=== PATIENT | male | born 1935 | race Caucasian/White ===

== ENCOUNTER 2019-12-23 14:53 | Outpatient (CLI) | payer MEDICARE, OTHER, SELFPAY ==
--- NOTE | ~2019-12-23 | US_ITS ---
EXAMINATION: US venous doppler LE RT EXAM DATE: 12/23/2019 15:26 INDICATION: Right leg, right calf pain. TECHNIQUE: Multiple grayscale, color flow and Doppler images of the right lower extremity deep venous system were obtained and reviewed. There is no prior study for comparison. FINDINGS: The right common femoral, femoral and profunda veins demonstrate normal color flow, respira tory variation, augmentation and compressibility. Compressibility, color flow confirmed within the r ight popliteal, posterior tibial, peroneal, and greater saphenous veins. IMPRESSION: 1. No right lower extremity deep venous thrombosis. Reviewed, dictated and finalized at location A. [employer] DEVELOPER
== END 2019-12-23 14:54 | disposition home or self-care (01) ==
PROVIDERS: PCP Nurse Practitioner Adult Health; Visit Provider Nurse Practitioner Adult Health
DX: M79.661 Pain in right lower leg (principal)
CPT/HCPCS: 93971

== ENCOUNTER 2022-11-20 17:22 | Inpatient (IN) | payer MEDICARE, OTHER, SELFPAY ==
[2022-11-20] VITALS (41 sets, daily range): BP systolic 104–143; BP diastolic 60–91; PULSE 58–170; RESP 20–55; TEMP 37.2; O2SAT 90–98
--- NOTE | ~2022-11-20 | XR_ITS ---
EXAMINATION: XR chest 2V DATE: 11/20/2022 18:26 INDICATION: Shortness of breath. Cough. TECHNIQUE: Frontal and lateral views of the chest were obtained. COMPARISON: Chest 2 views 07/30/2018, CT abdomen and pelvis 10/19/16 FINDINGS: There is a mass in anterior segment right upper lobe. There are airspace opacities in left lower lung zone. No pleural effusion or pneumothorax. The heart size is normal. IMPRESSION: 1. Mass in right upper lobe suspicious for primary bronchogenic carcinoma. Chest CT with contrast is recommended. 2. Airspace opacities in left lower lung zone, consistent with atelectasis versus pneumonia. Reviewed, dictated and finalized at location E. IMPRESSION: 1. Mass in right upper lobe suspicious for primary bronchogenic carcinoma. Ches t CT with contrast is recommended. 2. Airspace opacities in left lower lung zone, consistent with atelectasis vers us pneumonia.
--- NOTE | ~2022-11-20 | CT_ITS ---
EXAMINATION: CTA chest PE protocol DATE: 11/20/2022 20:09 INDICATION: Shortness of breath. TECHNIQUE: Computed tomography angiography (CTA) of the chest was performed with 100 mL Omnipaque-350 intravenous contrast timed to evaluate the pulmonary arteries. Coronal maximum intensity projection 3D-reconstructions were created by the technologist. Automated exposure control and iterative reconst ruction technique were employed. The dose-length product was 784.84 mGy-cm. COMPARISON: Chest CT 12/16/2008 FINDINGS: There is mild scarring at the lung apices. There is mild emphysema. There are patchy airspa ce opacities in the lower lobes, right middle lobe, and lingula, consistent with pneumonia. There is a 3.4 x 2.8 cm mass in right lung upper lobe. There is a trace left pleural effusion. The heart size is normal. There are coronary artery calcifications. No pericardial effusion. There is no pulmonary e mbolus. There is mild mediastinal and bilateral hilar lymphadenopathy. There are bridging endplate os teophytes at multiple levels in the spine, consistent with diffuse idiopathic skeletal hyperostosis ( DISH). IMPRESSION: 1. No pulmonary embolus. Sensitivity is moderately decreased by motion artifact. 2. Mass in right lung upper lobe, consistent with primary bronchogenic carcinoma. CT-guided biopsy is recommended. 3. Multifocal pneumonia. 4. Mild emphysema. 5. Mild mediastinal and bilateral hilar lymphadenopathy, which may be reactive lymphadenopathy and/or metastatic disease. Reviewed, dictated and finalized at location E. IMPRESSION: 1. No pulmonary embolus. Sensitivity is moderately decreased by motion artifact . 2. Mass in right lung upper lobe, consistent with primary bronchogenic carcinom a. CT-guided biopsy is recommended. 3. Multifocal pneumonia. 4. Mild emphysema. 5. Mild mediastinal and bilateral hilar lymphadenopathy, which may be reactive lymphadenopathy and/or metastatic disease.
--- NOTE | 2022-11-20 17:52 | ECG_ITS ---
Measurements Intervals [place] Rate: 120 P: [place]: 0 QRS: -55 QRSD: 85 T: 63 QT: 288 QTc: 408 Interpretive Statements ATRIAL FIBRILLATION WITH RAPID VENTRICULAR RESPONSE LEFT AXIS DEVIATION [QRS AXIS < -30] LOW QRS VOLTAGE IN PRECORDIAL LEADS [QRS DEFLECTION < 1.0 mV IN CHEST LEADS] ANTEROSEPTAL MYOCARDIAL INFARCTION , OF INDETERMINATE AGE [40+ ms Q WAVE IN V1-V4] NO PREVIOUS ECG AVAILABLE FOR COMPARISON Electronically Signed On 11-21-2022 14:56:06 CDT by Mere Sesay M.D.
--- NOTE | 2022-11-20 17:54 | PC.NURSE ---
Roberto hoffman he has not taken any of his home medication for 1 week.
[2022-11-20 18:22] LABS: Basophils Absolute Auto 0.1 K/mm3 (0.0-0.1); Basophils Percent Auto 0.5 % (0.2-1.2); Eosinophils Percent Auto 0.1 % (0-4.4); Hematocrit 41.2 % (42.0-52.0); Hemoglobin 13.5 g/dL (14.0-18.0); Immature Granulocyte Percent A 0.8 % (0-0.5); Lymphocytes Absolute Auto 0.77 K/mm3 (0.9-3.2); Lymphocytes Percent Auto 6.2 % (18.3-44.2); Mean Corpuscular HGB Conc 32.8 g/dl (32-36); Mean Corpuscular Hemoglobin 29.8 pg (26-34); Mean Corpuscular Volume 90.9 fl (80-100); Monocytes Absolute Auto 1.1 K/mm3 (0.1-0.6); Monocytes Percent Auto 8.6 % (2.6-8.5); Neutrophils Absolute Auto 10.5 K/mm3 (1.3-6.7); Neutrophils Percent Auto 83.8 % (45.5-73.1); Platelet Count Result 428 k/mm3 (150-375); Red Blood Count 4.53 M/mm3 (4.6-6.20); Red Cell Distribution Width 12.8 % (11.5-14.5); White Blood Count 12.5 K/mm3 (4.5-10.0)
[2022-11-20 18:31] LABS: Alanine Aminotransferase 41 U/L (6-50); Albumin Level 4.2 g/dL (3.5-5.1); Alkaline Phosphatase 109 U/L (38-126); Anion Gap 10 mmol/L (8-16); Aspartate Amino Transferase 46 U/L (17-59); Bilirubin,Total 1.1 mg/dL (0.2-1.3); Blood Urea Nitrogen 19 mg/dL (9-20); Calcium 9.5 mg/dL (8.4-10.2); Carbon Dioxide 28 mmol/L (22-30); Chloride 97 mmol/L (98-107); Estimated CRCL calculation 45 ml/min; Estimated Glomerular Filt Rate > 60; Glucose 176 mg/dL (65-110); Potassium 3.9 mmol/L (3.4-5.0); Sodium 135 mmol/L (137-145)
[2022-11-20 18:43] LABS: NT Pro B Type Natriuretic Pept 465 pg/mL (19.9-100); Troponin I 0.023 ng/mL (0.000-0.034)
[2022-11-20 18:50] LABS: Appearance Urine Cloudy (Clear); Bacteria Urine None Seen /hpf; Bilirubin Urine Negative (Negative); Blood Urine 1+ (Negative); Color Urine Dark Yellow (Yellow); Glucose Urine UA Negative (Negative); Ketones Urine 2+ mg/dL (Negative); Leukocyte Esterase Ur Negative LEU/UL (Negative); Nitrate Urine Negative (Negative); Non Pathogenic Casts 0-2; Protein Urine 2+ mg/dL (Negative); RBC Urine 0-2 /hpf (0-2); Squamous Epithelial Cell Urine None seen /hpf (Few); WBC Urine 0-5 /hpf
[2022-11-20 19:00] LABS: Add Urine Microscopic? YES
[2022-11-20] MEDS: dilTIAZem HCl INJ 25 MG/5 ML VIAL 10 MG IV PUSH (19:07)
[2022-11-20] MEDS: LORazepam INJ (*CRX) 2 MG/ML VIAL 0.5 MG IV PUSH (19:30)
[2022-11-20 19:35] LABS: D Dimer 2.65 ug/mL (<0.48)
--- NOTE | 2022-11-20 20:44 | ED.SOB ---
HPI - SOB/Dyspnea General Chief Complaint: Shortness of Breath/Dyspnea Stated Complaint: sob, ear pain Time Seen by Provider: 11/20/22 19:03 History of Present Illness HPI Narrative: Patient presents the emergency department from home with his son. He has had increasing shortness of breath over the past few days. Wanted to come to the ER yesterday but waited till today. Son has been very concerned. Patient has also been generally weak and cannot ambulate due to weakness. Denies history of COPD CHF or A-fib. However he is tachycardic and irregular. Denies cough or fever. Patient is visibly short of breath and says that he also feels anxious. Related Data Home Medications Medication Instructions Recorded Confirmed cilostazol 100 mg tablet 100 mg PO BID 11/20/22 11/21/22 cyanocobalamin (vitamin B-12) 1,000 mcg PO DAILY 11/20/22 11/21/22 1,000 mcg sublingual tablet metformin 500 mg tablet,extended 1,000 mg PO DAILY 11/20/22 11/21/22 release 24 hr Allergies Allergy/AdvReac Type Severity Reaction Status Date / Time oseltamivir Allergy Unknown Unknown Verified 11/20/22 17:54 Review of Systems Review of Systems: Negative except what is documented in the HPI [facility] Past Medical History Medical History (Updated 11/21/22 @ 00:07 by Angelika Milner DO) COPD (chronic obstructive pulmonary disease) Obesity Peripheral vascular disease Type 2 diabetes mellitus Surgical History Surgical History (Updated 11/20/22 @ 23:41 by Angelika Milner DO) Status post cataract extraction of both eyes with insertion of intraocular lens Family History Family History Mother Myocardial infarction Father Other No significant family history Social History Social History (Updated 11/21/22 @ 00:55 by Angelika Milner DO) Social History: Patient lives at home with his of 55 years. They have 2 children. 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 He smoked at least 2 packs cigarettes per day from a preteen until 1995. He is independent ambulation and activities of daily living. Code status: DNR/DNI (per patient request) Surrogate decision maker: Smoking packs per day: 2 Smoking cigarettes per day: 40.0 Years smoked: 44 Smoking pack-years: 88.00 Smoking status: Former smoker Tobacco type: cigarettes Second hand tobacco smoke exposure: No Smoking end date: 11/21/94 Alcohol intake: never Alcohol use details: He quit drinking alcohol over 30 years ago. He denies any history of excessive alcohol use. Substance use: never Lack of Transportation: No Lack of Food: Never True Current Housing: I Have Housing Concerned About Future Housing: No Difficulty Paying Gas/Electric Bills: No Difficulty Paying for Meds: No Currently Unemployed: No Education: Grade School Difficulty w/ Childcare or Family Care: No Spiritual care concerns: No Exam Narrative: GENERAL: Well-appearing, well-nourished, anxious and tachypneic HEAD: Normocephalic, atraumatic. EYES: PERRLA and EOMI. ENT: Nares clear, no rhinorrhea or epistaxis. Mucous membranes moist. NECK: Supple. CHEST: Clear to auscultation. No respiratory distress. Tachypneic HEART: Tachycardic and irregular ABDOMEN: Soft, nontender, nondistended. EXTREMITIES: Normal range of motion. No edema. SKIN: Warm, dry, no rash. NEURO: No focal deficits. Alert and oriented x3. PSYCH: Normal mood and affect. Course Course Emergency Course: Differential diagnosis includes but not limited to pneumonia, CHF exacerbation, pleural effusion, PE Telemetry ordered due to new onset arrhythmia to evaluate for dysrhythmias. Evaluated by myself. Rhythm irregular Rate 135 Due to high probability of clinically significant lift threatening deterioration, the patient required my highest level of preparedness to intervene emergently. Critical
[2022-11-20] MEDS: dilTIAZem 100 MG/100 ML 100 MG/100 ML BAG IV CONT (20:50)
--- NOTE | 2022-11-20 21:03 | PC.NURSE ---
Berry Irvin [phone]
[2022-11-20] MEDS: diphenhydrAMINE HCl INJ 50 MG/ML VIAL 25 MG IV PUSH (21:35)
[2022-11-20 22:40] LABS: Troponin I 0.029 ng/mL (0.000-0.034)
--- NOTE | 2022-11-20 23:11 | PC.NURSE ---
Dr. Milner at bedside to assess pt.
--- NOTE | 2022-11-20 23:33 | PM.IMHP ---
H&P: HPI History of Present Illness Date/Time: 11/20/22 22:40 Chief Complaint: Difficulty breathing Narrative: 86-year-old male with a past medical history of COPD, type 2 diabetes mellitus and peripheral vascular disease who presented to the ER from home with increased shortness of breath for 1 week. The patient reports that he has been having increased shortness of breath for 1 week. He did not want to come to the hospital because the last time that he was brought to the hospital for something else symptoms never improved. However, he came in this time because the shortness of breath became so severe. He reports that shortness of breath is been accompanied by chills and cough productive of yellow sputum. He reports he always has some sputum production but it is usually white in color and not as copious. Over the last 3 days he is having copious amounts of yellow sputum production. He denies any hemoptysis. he denies any ill contacts. He has not checked his temperature. He denies any nausea or vomiting but has had decreased appetite for the last couple of months. He has also had some progressive weakness for the last couple of months as well. He reports that he occasionally has some orthopnea that is worsened over the last week. He was found to be in AFib on presentation to the ER he denies any known history of heart failure or atrial fibrillation. He has not been feeling any palpitations or heart racing. He reports that he has been having some discomfort in his lower ribcage just below his ribs that he thought was due to his difficulty breathing. He reports that the pain is improved currently. It is usually worse with cough and deep breathing. Denies any diaphoresis, lightheadedness or dizziness. He did have a fall last week due to slipping on the floor in his generalized weakness. He reports that it took him quite some time to be able to maneuver himself around so that he could get himself up. He did call for his to help him but she is hard of hearing and did not realize that he had fallen until after he had managed to get himself up. He has been having significant decreased appetite for a couple of months. He denies difficulty following. He is unsure if he has lost any weight because he has felt so ill he has not weighed himself. He denies any lower extremity swelling. He denies a known history of BPH but does report sensation of incomplete bladder emptying, difficulty starting and stopping his urinary stream and spraying of his urine. He reports some discomfort in his medial thigh between his hip in his knee on in left-sided that is been ongoing for the last week. He reports that he has been having trouble getting the leg to move the way he wanted to. He reports that he does snore. He does feel fatigued and quite frequently will fall asleep in the recliner. He reports that up until recently he was independent all activities of daily living. He was actually using an angle grinder chipper a few weeks ago and traumatized his left lower extremity. He still has a scab present. Review of Systems Review of Systems: 12 systems were reviewed with pertinent positives and negatives per HPI. Except as documented in the HPI, all other systems were reviewed and are negative. [facility] Past Medical History Medical History (Updated 11/21/22 @ 00:07 by Angelika Milner DO) COPD (chronic obstructive pulmonary disease) Obesity Peripheral vascular disease Type 2 diabetes mellitus Surgical History Surgical History (Updated 11/20/22 @ 23:41 by Angelika Milner DO) Status post cataract extraction of both eyes with insertion of intraocular lens Family History Family History (Updated 11/20/22 @ 23:41 by Angelika Milner DO) Other No significant family history Social History Social History (Updated 11/20/22 @ 23:43 by Angelika Milner DO) Social History: Patient lives at home with his of 55 years. They have 2 children. He is
[2022-11-21] VITALS (17 sets, daily range): BP systolic 117–142; BP diastolic 61–75; PULSE 68–130; RESP 16–24; TEMP 36.5–37.1; O2SAT 88–94; BMI 30.7; BMI 30.3
--- NOTE | 2022-11-21 | ECHO_ITS ---
Patient Info Name: Ruben Dillard Age: 86 years : 1935 Gender: Male Ht: 69 in Wt: 200 lbs BSA: 2.12 m2 HR: 95 bpm BP: 142 / 75 mmHg Technical Quality: Fair Exam Date: 11/21/2022 10:19 AM Exam Location: [facility] Patient Status: Inpatient Admit Date: 11/20/2022 Staff Ordering Physician: Angelika Milner DO Supervisor Throwing Department: Mason Gamez RDCS Attending Provider: Angelika Milner DO Referring Physician: Annia GUILLAUME; Exam Type: CA echo doppler color flow Study Info Indications - new onset Afib Complete two-dimensional, color flow and Doppler transthoracic echocardiogram is performed with contrast to opacify the left ventricle and to improve the deliniation of the left ventricle endocardial borders. Contrast/Agitated Saline Contrast/Ag. Saline: Definity Amount: 3.00 ml Summary 1. Left ventricular chamber dimension is normal. 2. Left ventricular systolic function is normal, estimated at >70%. 3. The left ventricular diastolic function is grade I diastolic dysfunction. 4. Right ventricular chamber dimension is moderately enlarged. 5. Right ventricular systolic function is normal. 6. Right atrial chamber dimension is moderately enlarged. 7. There is mild mitral valve regurgitation. 8. There is moderate tricuspid valve regurgitation. 9. There is trivial pericardial effusion. Left Ventricle Left ventricular chamber dimension is normal. Left ventricular systolic function is normal, estimated at >70%. There is no increased left ventricular wall thickness. The left ventricular diastolic function is grade I diastolic dysfunction. Right Ventricle Right ventricular chamber dimension is moderately enlarged. Right ventricular systolic function is normal. Left Atria Left atrial chamber dimension is normal. Right Atria Right atrial chamber dimension is moderately enlarged. Atrial Septum Intact interatrial septum visualized by color flow imaging. Aortic Valve The aortic valve is probable trileaflet. There is moderate aortic valve sclerosis. There is no aortic valve stenosis. There is no aortic valve regurgitation. Pulmonic Valve The pulmonic valve is not well visualized. Mitral Valve There is mild mitral valve regurgitation. Tricuspid Valve There is moderate tricuspid valve regurgitation. Pericardium/Pleural There is trivial pericardial effusion. Inferior Vena Cava Inferior vena cava is not well visualized. Aorta The aortic root size at the sinus of Valsalva is normal. Left Ventricular Outflow Tract Name Value Normal LVOT 2D LVOT Diameter 2.1 cm LVOT Doppler LVOT Peak Gradient 8 mmHg LVOT Mean Gradient 5 mmHg LVOT VTI 34 cm LVOT VTI/AV VTI Ratio 0.8 LVOT Stroke Volume 117 ml LVOT CO 21.3 l/min LVOT CI 10.0 l/min/m2 Pulmonic Valve Name Value Normal
--- NOTE | 2022-11-21 00:07 | ADMGEN ---
This patient, Ruben Dillard, was admitted to IMU Room 206-02. Patient/family oriented to hospital policies and general routines including ID bracelet, bed and alarms, visiting hours, pain management, procedures, bathroom and other care routines, personal items, smoking policy, room service/diet, and visiting hours. Information on how to activate the Rapid Response Team has been discussed. Patient/Family are encouraged to report perceived risks to care and to ask questions if they do not understand what they are told or what they should do.
[2022-11-21 00:49] LABS: Lactic Acid Reflex 1.3 mmol/L (0.7-2.0)
[2022-11-21 00:59] LABS: INR 1.1; Prothrombin Time 14.6 Seconds (11.1-14.7)
[2022-11-21] MEDS: cefTRIAXone 2 GM/NS 100 ML 2 GM/100 ML BAG IVPB (01:32)
[2022-11-21] MEDS: SODIUM CHLORIDE 0.9% IV 1,000 ML 100 ML IV CONT ×2 (02:24→13:31)
[2022-11-21] MEDS: AZITHROMYCIN 500 MG/NS 250 ML 500 MG/250 ML BAG 250 MG IVPB (02:26)
[2022-11-21] MEDS: ALPRAZolam (*CRX) 0.125 MG TABLET PO (04:08)
[2022-11-21 04:25] LABS: SARS-CoV-2 RNA PCR Negative (Negative)
[2022-11-21 05:18] LABS: Basophils Absolute Auto 0.1 K/mm3 (0.0-0.1); Basophils Percent Auto 0.4 % (0.2-1.2); Hematocrit 38.6 % (42.0-52.0); Hemoglobin 12.2 g/dL (14.0-18.0); Immature Granulocyte Absolute 0.17 K/mm3 (0.00-0.031); Immature Granulocyte Percent A 1.2 % (0-0.5); Lymphocytes Absolute Auto 1.13 K/mm3 (0.9-3.2); Lymphocytes Percent Auto 8.1 % (18.3-44.2); Mean Corpuscular HGB Conc 31.6 g/dl (32-36); Mean Corpuscular Hemoglobin 29.3 pg (26-34); Mean Corpuscular Volume 92.8 fl (80-100); Mean Platelet Volume 10.5 fl (7.4-10.4); Monocytes Absolute Auto 1.4 K/mm3 (0.1-0.6); Monocytes Percent Auto 10.2 % (2.6-8.5); Neutrophils Absolute Auto 11.2 K/mm3 (1.3-6.7); Neutrophils Percent Auto 80.1 % (45.5-73.1); Platelet Count Result 366 k/mm3 (150-375); Red Blood Count 4.16 M/mm3 (4.6-6.20); Red Cell Distribution Width 12.8 % (11.5-14.5); White Blood Count 13.9 K/mm3 (4.5-10.0)
[2022-11-21 05:29] LABS: Potassium 3.6 mmol/L (3.4-5.0)
[2022-11-21 05:33] LABS: Anion Gap 13 mmol/L (8-16); Blood Urea Nitrogen 16 mg/dL (9-20); Calcium 8.7 mg/dL (8.4-10.2); Carbon Dioxide 26 mmol/L (22-30); Chloride 98 mmol/L (98-107); Estimated CRCL calculation 56 ml/min; Estimated Glomerular Filt Rate > 60; Glucose 177 mg/dL (65-110); Magnesium 2.3 mg/dL (1.6-2.3); Sodium 137 mmol/L (137-145)
[2022-11-21 05:47] LABS: INR 1.1; Prothrombin Time 14.5 Seconds (11.1-14.7)
[2022-11-21 06:00] LABS: Partial Thromboplastin Time 35.6 SECONDS (22.3-36.8)
[2022-11-21 06:14] LABS: Thyroid Stimulating Hormone Reflex 0.526 uIU/mL (0.465-4.68)
[2022-11-21] MEDS: HEPARIN SOD/D5W 100 UNITS/ML 25,000 UNITS/250 ML BAG 14 UNITS IV CONT (06:22)
[2022-11-21] MEDS: dilTIAZem 100 MG/100 ML 100 MG/100 ML BAG 10 MG IV CONT ×2 (07:51→16:02)
[2022-11-21 08:40] LABS: Glucose Point of Care 176 mg/dl (65-105)
[2022-11-21] MEDS: CYANOCOBALAMIN 1,000 MCG TABLET 1000 MCG PO (10:37)
[2022-11-21] MEDS: cilostazoL 100 MG TABLET PO ×2 (10:37→16:03)
[2022-11-21] MEDS: metFORMIN HCL XR 500 MG TAB.SR.24H 1000 MG PO (10:37)
[2022-11-21] MEDS: TAMSULOSIN HCL 0.4 MG CAPSULE PO (10:37)
[2022-11-21 12:31] LABS: Glucose Point of Care 193 mg/dl (65-105)
[2022-11-21 12:49] LABS: Partial Thromboplastin Time 48.3 SECONDS (22.3-36.8)
[2022-11-21] MEDS: HEPARIN SODIUM 5,000 UNITS/ML VIAL 6500 UNITS IV PUSH (13:24)
[2022-11-21 15:15] LABS: Glucose Point of Care 203 mg/dl (65-105)
[2022-11-21 17:33] LABS: Glucose Point of Care 310 mg/dl (65-105)
[2022-11-21] MEDS: INSULIN ASPART (*BKC) 100 UNITS/ML SUB-Q ×2 (18:24→20:23)
[2022-11-21 19:52] LABS: Glucose Point of Care 234 mg/dl (65-105)
[2022-11-21 19:59] LABS: Partial Thromboplastin Time 58.4 SECONDS (22.3-36.8)
[2022-11-21] MEDS: HEPARIN SODIUM 5,000 UNITS/ML VIAL 3000 UNITS IV PUSH (20:22)
[2022-11-21] MEDS: MAGNESIUM CITRATE 300 ML BTL PO (20:22)
[2022-11-21] MEDS: HEPARIN SOD/D5W 100 UNITS/ML 25,000 UNITS/250 ML BAG 19 UNITS IV CONT (20:41)
--- NOTE | 2022-11-21 21:32 | PM.IMPN ---
Progress Note: A&P Assessment and Plan (1) Sepsis: Qualifiers: Sepsis type: sepsis due to unspecified organism Sepsis acute organ dysfunction status: with acute organ dysfunction Severe sepsis acute organ dysfunction type: acute respiratory failure Acute respiratory failure type: with hypoxia Severe sepsis shock status: without septic shock Qualified Code(s): A41.9 - Sepsis, unspecified organism; R65.20 - Severe sepsis without septic shock; J96.01 - Acute respiratory failure with hypoxia Code(s): A41.9 - Sepsis, unspecified organism Status: Acute (2) Snoring: Code(s): R06.83 - Snoring Status: Acute (3) BPH (benign prostatic hyperplasia): Qualifiers: Lower urinary tract symptom presence: symptoms present Lower urinary tract symptom detail: weak urinary stream Qualified Code(s): N40.1 - Benign prostatic hyperplasia with lower urinary tract symptoms; R39.12 - Poor urinary stream Code(s): N40.0 - Benign prostatic hyperplasia without lower urinary tract symptoms Status: Acute (4) Type 2 diabetes mellitus: Qualifiers: Diabetes mellitus assisted insulin use: without assisted use Diabetes mellitus complication status: with hyperglycemia Qualified Code(s): E11.65 - Type 2 diabetes mellitus with hyperglycemia Code(s): E11.9 - Type 2 diabetes mellitus without complications Status: Acute (5) New onset a-fib: Code(s): I48.91 - Unspecified atrial fibrillation Status: Acute (6) Atrial fibrillation with rapid ventricular response: Code(s): I48.91 - Unspecified atrial fibrillation Status: Acute (7) Lung mass: Code(s): R91.8 - Other nonspecific abnormal finding of lung field Status: Acute (8) Pneumonia: Qualifiers: Laterality: unspecified laterality Lung location: unspecified part of lung Pneumonia type: due to unspecified organism Qualified Code(s): J18.9 - Pneumonia, unspecified organism Code(s): J18.9 - Pneumonia, unspecified organism Status: Acute Plan 1. Afib rvr The patient had new onset AFib RVR.? Patient has responded well to Cardizem drip.? Cardizem is been increased to 10 mg.? Heart rate has improved down to the low 100s to 110s.? Will obtain echocardiogram to have further evaluate cardiac structure and function.? Patient has been started on heparin drip.? However patient has had weakness and recent falls.? Has a high has bled score but also high chads Vasc score.? The benefits and risks of chronic anticoagulation need to be discussed patient and his family.? Will repeat CBC and coags per heparin drip guidelines.? Will check electrolyte panel in a.m. and magnesium level.? Also check TSH. 11/21 hr has not improved. 130-150 in rvr. increase diliazem to 15 mg/hr and give a 25 mg bolus if it does not work will need to switch to amiodarone drip stop heparin drip, start eliquis, bridge for 2 hrs echo shows evidence of sepsis, hyperdynamic LV, ef 70%, grade 1 diastolic dysfunction, rvsp 47 mmhg also his RV was enlarged with normal systolic fx sepsis has resolved 2. Sepsis with multifocal pna A CT demonstrates evidence of multifocal pneumonia patient has been having increased sputum production that is changed in color.? His temperature is 99?, he has tachycardia, tachypnea and leukocytosis.? He fit sepsis criteria antibiotics were given prior to blood cultures being obtained.? Will add blood cultures.? Patient is not receiving fluid bolus due to AFib in cardiac symptoms.? Will place patient on maintenance fluids as he does report dry mucous membranes in decreased oral intake.? Will repeat electrolyte panel in a.m..? Will check urine Legionella, and urine pneumococcal antigen.? Will also check COVID PCR. 11/21 covid neg sputum cx vanc/zosyn until sputum cx stop ivf, no longer septic, has had adequate fluid resuscitation 3. bronchogenic carcinoma Patient does have evidence of lung mass suspicious f
--- NOTE | 2022-11-21 21:52 | PC.NURSE ---
Patient requesting to leave TONI Sanz RN. Myself went to talk to patient. Patient states he cannot stay in the hospital per his wishes. Patient is aware that he is on a cardizem drip for heart rate control and that leaving against medical advice patient could potentially cause harm to self and that symptoms could potentially become life threatening. Patient is alert and oriented x4. States he understands the risks of leaving and the benefits of staying. Dr. Forbes notified and signed AMA paperwork as well as patient. PIV x2 removed. Patient has a ride coming to pick him up. All patient belongings gathered.
--- NOTE | 2022-12-04 09:58 | PM.DS ---
DS: Admitting Diagnosis Discharge Date 11/21/22 Admitting Diagnosis afib rvr DS: Discharge Diagnosis Discharge Diagnosis (1) New onset a-fib: Code(s): I48.91 - Unspecified atrial fibrillation Status: Acute (2) Type 2 diabetes mellitus: Qualifiers: Diabetes mellitus exterminator helper insulin use: without usp use Diabetes mellitus complication status: with hyperglycemia Qualified Code(s): E11.65 - Type 2 diabetes mellitus with hyperglycemia Code(s): E11.9 - Type 2 diabetes mellitus without complications Status: Acute (3) Sepsis: Qualifiers: Sepsis type: sepsis due to unspecified organism Sepsis acute organ dysfunction status: with acute organ dysfunction Severe sepsis acute organ dysfunction type: acute respiratory failure Acute respiratory failure type: with hypoxia Severe sepsis shock status: without septic shock Qualified Code(s): A41.9 - Sepsis, unspecified organism; R65.20 - Severe sepsis without septic shock; J96.01 - Acute respiratory failure with hypoxia Code(s): A41.9 - Sepsis, unspecified organism Status: Acute (4) Hypoxia: Code(s): R09.02 - Hypoxemia Status: Acute (5) Pneumonia: Qualifiers: Pneumonia type: due to unspecified organism Code(s): J18.9 - Pneumonia, unspecified organism Status: Acute (6) Mass of upper lobe of right lung: Code(s): R91.8 - Other nonspecific abnormal finding of lung field Status: Acute (7) Constipation: Qualifiers: Constipation type: chronic idiopathic constipation Qualified Code(s): K59.04 - Chronic idiopathic constipation Code(s): K59.00 - Constipation, unspecified Status: Acute Plan Pt left AMA unfortunately DS: Summary Hospital Course Reason for hospitalization: afib rvr, sepsis, pneumonia Hospital Course: Plan 1. Afib rvr The patient had new onset AFib RVR.? Patient has responded well to Cardizem drip.? Cardizem is been increased to 10 mg.? Heart rate has improved down to the low 100s to 110s.? Will obtain echocardiogram to have further evaluate cardiac structure and function.? Patient has been started on heparin drip.? However patient has had weakness and recent falls.? Has a high has bled score but also high chads Vasc score.? The benefits and risks of chronic anticoagulation need to be discussed patient and his family.? Will repeat CBC and coags per heparin drip guidelines.? Will check electrolyte panel in a.m. and magnesium level.? Also check TSH. 11/21 hr has not improved. 130-150 in rvr. increase diliazem to 15 mg/hr and give a 25 mg bolus if it does not work will need to switch to amiodarone drip stop heparin drip, start eliquis, bridge for 2 hrs echo shows evidence of sepsis, hyperdynamic LV, ef 70%, grade 1 diastolic dysfunction, rvsp 47 mmhg also his RV was enlarged with normal systolic fx sepsis has resolved 2. Sepsis with multifocal pna A CT demonstrates evidence of multifocal pneumonia patient has been having increased sputum production that is changed in color.? His temperature is 99?, he has tachycardia, tachypnea and leukocytosis.? He fit sepsis criteria antibiotics were given prior to blood cultures being obtained.? Will add blood cultures.? Patient is not receiving fluid bolus due to AFib in cardiac symptoms.? Will place patient on maintenance fluids as he does report dry mucous membranes in decreased oral intake.? Will repeat electrolyte panel in a.m..? Will check urine Legionella, and urine pneumococcal antigen.? Will also check COVID PCR. 11/21 covid neg sputum cx vanc/zosyn until sputum cx stop ivf, no longer septic, has had adequate fluid resuscitation 3. bronchogenic carcinoma Patient does have evidence of lung mass suspicious for bronchogenic carcinoma.? The patient states that he does not think that he would want biopsy or intervention.? Even prior to me to discussing the mass with the patient he stated that he is tired
== END 2022-11-21 22:07 | disposition left against medical advice (07) | DRG 871 ==
LOC: ANHED 22:53 → ANHIMU 23:37
PROVIDERS: Emergency Medicine; Admitting Provider Internal Medicine; Emergency Provider Emergency Medicine; Visit Provider Internal Medicine
DX: A41.9 Sepsis, unspecified organism (principal); J18.9 Pneumonia, unspecified organism; J44.0 Chronic obstructive pulmonary disease with (acute) lower respiratory infection; N40.0 Benign prostatic hyperplasia without lower urinary tract symptoms; G47.33 Obstructive sleep apnea (adult) (pediatric); R91.8 Other nonspecific abnormal finding of lung field; I48.91 Unspecified atrial fibrillation; I73.9 Peripheral vascular disease, unspecified; E66.9 Obesity, unspecified; Z96.1 Presence of intraocular lens; E11.65 Type 2 diabetes mellitus with hyperglycemia; Z20.822 Contact with and (suspected) exposure to COVID-19; Z68.30 Body mass index [BMI] 30.0-30.9, adult; Z98.42 Cataract extraction status, left eye; Z98.41 Cataract extraction status, right eye
CPT/HCPCS: 36415; 71046; 71275; 80048; 80053; 81001; 82948; 83605; 83735; 83880; 84443; 84484; 85025; 85380; 85610; 85730; 87040; 87635; 93005; 93306; 96365; 96375; 99285; A9270; J0456; J0696; J1200; J1644; J1815; J2060; J7030; Q9967

== ENCOUNTER 2022-11-24 06:44 | Inpatient (IN) | payer MEDICARE, OTHER, SELFPAY ==
[2022-11-24] VITALS (18 sets, daily range): BP systolic 136–157; BP diastolic 68–136; PULSE 82–110; RESP 16–28; TEMP 36.2–37.5; O2SAT 88–96; BMI 31.8
--- NOTE | ~2022-11-24 | XR_ITS ---
Portable chest x-ray Comparison: 11/20/2022 Clinical History: Shortness of breath Findings: There is worsening left lower lobe airspace consolidation. There is stable ovoid mass at t he inferior right upper lobe Cardiomediastinal silhouette is stable. Bones and soft tissues are unre markable. Impression: Worsening left lower lobe airspace consolidation, suspicious for pneumonia. Stable inferior right upper lobe mass. Please refer to recent CT dated 11/20/2022 for further details . Reviewed, dictated and finalized at location M. Impression: Worsening left lower lobe airspace consolidation, suspicious for pneumonia. Stable inferior right upper lobe mass. Please refer to recent CT dated 11/21/19 23 for further details.
--- NOTE | 2022-11-24 06:52 | ECG_ITS ---
Measurements Intervals [place] Rate: 97 P: [place]: 0 QRS: -25 QRSD: 86 T: 60 QT: 345 QTc: 438 Interpretive Statements sinus rhythm with frequent PACsLOW QRS VOLTAGE IN PRECORDIAL LEADS [QRS DEFLECTION < 1.0 mV IN CHEST LEADS] ANTEROSEPTAL MYOCARDIAL INFARCTION , OF INDETERMINATE AGE [40+ ms Q WAVE IN V1-V4] COMPARED TO ECG 11/20/2022 17:59:16 HR decreased Electronically Signed On 11-24-2022 7:48:52 CDT by Melvin Saunders MD
[2022-11-24 07:06] LABS: Basophils Absolute Auto 0.1 K/mm3 (0.0-0.1); Basophils Percent Auto 0.5 % (0.2-1.2); Eosinophils Absolute Auto 0.1 K/mm3 (0-0.3); Hematocrit 38.3 % (42.0-52.0); Immature Granulocyte Absolute 0.14 K/mm3 (0.00-0.031); Immature Granulocyte Percent A 1.5 % (0-0.5); Lymphocytes Absolute Auto 0.94 K/mm3 (0.9-3.2); Lymphocytes Percent Auto 10.2 % (18.3-44.2); Mean Corpuscular HGB Conc 31.3 g/dl (32-36); Mean Corpuscular Hemoglobin 29.1 pg (26-34); Mean Corpuscular Volume 92.7 fl (80-100); Mean Platelet Volume 8.1 fl (7.4-10.4); Monocytes Absolute Auto 0.6 K/mm3 (0.1-0.6); Monocytes Percent Auto 6.8 % (2.6-8.5); Neutrophils Absolute Auto 7.3 K/mm3 (1.3-6.7); Platelet Count Result 493 k/mm3 (150-375); Red Blood Count 4.13 M/mm3 (4.6-6.20); White Blood Count 9.2 K/mm3 (4.5-10.0)
[2022-11-24 07:42] LABS: NT Pro B Type Natriuretic Pept 964 pg/mL (19.9-100)
[2022-11-24 08:01] LABS: Influenza A QL RT-PCR Negative (Negative); Influenza B QL RT-PCR Negative (Negative); RSV RNA, RT-PCR Negative (Negative); SARS-CoV-2 RNA PCR Negative (Negative)
--- NOTE | 2022-11-24 08:06 | ED.GENADULT ---
HPI - General Adult General Chief complaint: Shortness of Breath/Dyspnea Stated complaint: dyspnea, abd pain Time Seen by Provider: 11/24/22 06:58 History of Present Illness HPI narrative: 86-year-old male present to the emergency department for evaluation of worsening shortness of breath. Patient had a recent admission for A-fib. At that time patient was also found to have a mass on his chest CT that was concerning for bronchogenic carcinoma. The hospitalist at that time states that the patient declined having any biopsy or further work-up. In the ED patient does feel improved while on oxygen. Related Data Home Medications Medication Instructions Recorded Confirmed cilostazol 100 mg tablet 100 mg PO BID 11/20/22 11/24/22 cyanocobalamin (vitamin B-12) 1,000 mcg PO DAILY 11/20/22 11/24/22 1,000 mcg sublingual tablet metformin 500 mg tablet,extended 1,000 mg PO DAILY 11/20/22 11/24/22 release 24 hr Allergies Allergy/AdvReac Type Severity Reaction Status Date / Time oseltamivir Allergy Unknown Unknown Verified 11/20/22 17:54 Review of Systems Review of Systems: All systems reviewed & are unremarkable except as noted in HPI and below PMFSH Past Medical History Medical History (Updated 11/24/22 @ 15:18 by Alessia Bailey APRN) COPD (chronic obstructive pulmonary disease) Obesity Peripheral vascular disease Type 2 diabetes mellitus Surgical History Surgical History (Updated 11/20/22 @ 23:41 by Angelika Milner DO) Status post cataract extraction of both eyes with insertion of intraocular lens Family History Family History Mother Myocardial infarction Father Other No significant family history Social History Social History (Updated 11/21/22 @ 00:55 by Angelika Milner DO) Social History: Patient lives at home with his of 55 years. They have 2 children. 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 He smoked at least 2 packs cigarettes per day from a preteen until 1995. He is independent ambulation and activities of daily living. Code status: DNR/DNI (per patient request) Surrogate decision maker: Smoking packs per day: 2 Smoking cigarettes per day: 40.0 Years smoked: 44 Smoking pack-years: 88.00 Smoking status: Never smoker Tobacco type: cigarettes Second hand tobacco smoke exposure: No Smoking end date: 11/21/94 Alcohol intake: never Alcohol use details: He quit drinking alcohol over 30 years ago. He denies any history of excessive alcohol use. Substance use: never Lack of Transportation: No Lack of Food: Never True Current Housing: I Have Housing Concerned About Future Housing: No Difficulty Paying Gas/Electric Bills: No Difficulty Paying for Meds: No Currently Unemployed: No Education: High School Diploma/GED Difficulty w/ Childcare or Family Care: No Spiritual care concerns: No Exam Narrative: APPEARANCE: Well appearing, no pain, no distress, well-nourished. HEAD: normocephalic, atraumatic. EYES: PERRLA/EOMI, conjunctivae clear. NOSE: Normal no drainage EARS:TMS clear with good light reflex. THROAT: Pharynx clear, no exudate. NECK: Supple. No adenopathy, no masses. RESPIRATORY: Airway patent, respirations nonlabored. Clear to auscultation bilaterally, no rales, rhonchi, wheezing. CARDIOVASCULAR: Regular rate and rhythm without murmurs rubs or gallops. ABDOMINAL: Soft, nontender, nondistended, normal bowel sounds MUSCULOSKELETAL: Moves all extremities. Strength/ROM intact, No edema, No calf tenderness. NEURO: Alert. Cranial nerves II through XII intact. Grossly intact SKIN: Warm, dry. Normal Color Course Course Emergency Course: 86-year-old male presented the ED for evaluation of worsening shortness of breath. X-ray was concerning for pneumonia. Patient was recently admitted to the hospital I will start on cefepime in the
[2022-11-24 08:15] LABS: Alanine Aminotransferase 45 U/L (6-50); Albumin Level 3.4 g/dL (3.5-5.1); Alkaline Phosphatase 88 U/L (38-126); Anion Gap 4 mmol/L (8-16); Aspartate Amino Transferase 31 U/L (17-59); Bilirubin,Total 0.7 mg/dL (0.2-1.3); Blood Urea Nitrogen 9 mg/dL (9-20); Calcium 8.5 mg/dL (8.4-10.2); Carbon Dioxide 37 mmol/L (22-30); Chloride 95 mmol/L (98-107); Estimated CRCL calculation 73 ml/min; Estimated Glomerular Filt Rate > 60; Glucose 154 mg/dL (65-110); Potassium 3.6 mmol/L (3.4-5.0); Sodium 136 mmol/L (137-145)
[2022-11-24] MEDS: ALBUTEROL SULFATE NEB 2.5 MG/3 ML INH INHALATION ×3 (08:24→19:49)
[2022-11-24] MEDS: CEFEPIME 2 GM/NS 50 ML 2 GM/50 ML BAG IVPB ×3 (08:35→22:56)
[2022-11-24] MEDS: VANCOMYCIN 1,250 MG/NS 250 ML 1,250 MG/250 ML BAG 166.67 MG IVPB ×2 (09:08→11:45)
[2022-11-24 09:59] LABS: MRSA (PCR) NOT DETECTED (NOT DETECTE)
--- NOTE | 2022-11-24 10:28 | PC.NURSE ---
pt again found with his oxygen off. pulse ox 88%. again placed on 2 l nc with pulse ox increasing to 94%.
--- NOTE | 2022-11-24 15:03 | PM.IMHP ---
H&P: HPI History of Present Illness Date/Time: 11/24/22 15:03 Chief Complaint: SOB Narrative: 86-year-old male presents here with increasing shortness of breath with past medical history of COPD, PVD, and diabetes. Patient reports that he has been having increased shortness of breath over the last week that is constant. patient has history of COPD and currently uses nebulizers at home, however has not been using his inhalers because he gave up on inhalers due to feeling like they did not work. Has not previously required oxygen at baseline. Was recently admitted for episode of atrial fibrillation, no previous history. During this admission he was found to have a mass that was concerning for bronchogenic cancer. Patient does not want to pursue biopsy or treatment, confirmed with patient. Reports recent incidence of panic attacks x2. First incidence was after he left AMA from the hospital on 11/21 that evening. He described the event as if he could: Enough air and his heart was racing. Second event was yesterday and similar to prior. Reports new chest discomfort to left lateral/posterior ribs. + Chronic cough - intermittent, usually productive yielding pale green to back sputum. also reporting that in the last 5 days he has been eating less and has had a decrease in p.o. intake. Last bowel movement was 5 days ago, still passing gas. Denies any nausea, vomiting, or indigestion. Review of Systems Review of Systems: All systems reviewed & are unremarkable except as noted in HPI and below PMFSH Past Medical History Medical History (Updated 11/24/22 @ 23:48 by Alessia Bailey APRN) Atrial fibrillation with rapid ventricular response BPH (benign prostatic hyperplasia) COPD (chronic obstructive pulmonary disease) Obesity Peripheral vascular disease Pneumonia Snoring Type 2 diabetes mellitus Surgical History Surgical History (Updated 11/20/22 @ 23:41 by Angelika Milner DO) Status post cataract extraction of both eyes with insertion of intraocular lens Family History Family History Mother Myocardial infarction Father Other No significant family history Social History Social History (Updated 11/21/22 @ 00:55 by Angelika Milner DO) Social History: Patient lives at home with his of 55 years. They have 2 children. 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 He smoked at least 2 packs cigarettes per day from a preteen until 1995. He is independent ambulation and activities of daily living. Code status: DNR/DNI (per patient request) Surrogate decision maker: Smoking packs per day: 2 Smoking cigarettes per day: 40.0 Years smoked: 44 Smoking pack-years: 88.00 Smoking status: Never smoker Tobacco type: cigarettes Second hand tobacco smoke exposure: No Smoking end date: 11/21/94 Alcohol intake: never Alcohol use details: He quit drinking alcohol over 30 years ago. He denies any history of excessive alcohol use. Substance use: never Lack of Transportation: No Lack of Food: Never True Current Housing: I Have Housing Concerned About Future Housing: No Difficulty Paying Gas/Electric Bills: No Difficulty Paying for Meds: No Currently Unemployed: No Education: High School Diploma/GED Difficulty w/ Childcare or Family Care: No Spiritual care concerns: No Meds Home Medications and Allergies Home Medications Medication Instructions Recorded Confirmed Type cilostazol 100 mg tablet 100 mg PO BID 11/20/22 11/24/22 History cyanocobalamin (vitamin B-12) 1,000 mcg PO DAILY 11/20/22 11/24/22 History 1,000 mcg sublingual tablet metformin 500 mg tablet,extended 1,000 mg PO DAILY 11/20/22 11/24/22 History release 24 hr Allergies Allergy/AdvReac Type Severity Reaction Status Date / Time oseltamivir Allergy Unknown Unknown Verified 11/20/22 17:54
[2022-11-24 15:53] LABS: Lactic Acid Reflex 1.1 mmol/L (0.7-2.0)
[2022-11-24 16:24] LABS: Hemoglobin A1C 7.6 % (<5.7)
[2022-11-24] MEDS: IPRATROPIUM BR 0.02% INH SOLN 0.5 MG/2.5 ML VIAL INHALATION ×2 (16:40→19:49)
--- NOTE | 2022-11-24 16:40 | PCRCNOTE ---
RT gave scheduled tx at 1400, then MD changed Q4 txs to start at 1600, RT omitted tx due to gap not being long enough in between, will start tx at 2000.
[2022-11-24 16:41] LABS: Glucose Point of Care 192 mg/dl (65-105)
[2022-11-24] MEDS: cilostazoL 100 MG TABLET PO (17:23)
[2022-11-24 20:51] LABS: Glucose Point of Care 230 mg/dl (65-105)
[2022-11-24] MEDS: polyethylene glycoL 3350 17 GM POWD.PACK PO (21:17)
[2022-11-24] MEDS: MELATONIN 3 MG TABLET PO (23:20)
[2022-11-25] VITALS (17 sets, daily range): BP systolic 118–134; BP diastolic 64–69; PULSE 84–109; RESP 16–20; TEMP 36.8–37.3; O2SAT 84–98
[2022-11-25] MEDS: AZITHROMYCIN 500 MG/NS 250 ML 500 MG/250 ML BAG 250 MG IVPB (01:24)
[2022-11-25] MEDS: traZODone HCL 50 MG TABLET PO (01:50)
--- NOTE | 2022-11-25 04:43 | PCRCNOTE ---
Patient refused both his 0000 and 0400 updraft treatments due to wanting sleep and stating he was breathing fine. Treatments to resume at 0800.
[2022-11-25] MEDS: CEFEPIME 2 GM/NS 50 ML 2 GM/50 ML BAG IVPB ×3 (06:18→21:54)
[2022-11-25] MEDS: IPRATROPIUM BR 0.02% INH SOLN 0.5 MG/2.5 ML VIAL INHALATION ×4 (07:03→20:37)
[2022-11-25] MEDS: ALBUTEROL SULFATE NEB 2.5 MG/3 ML INH INHALATION ×5 (07:03→20:38)
[2022-11-25 07:33] LABS: Glucose Point of Care 166 mg/dl (65-105)
--- NOTE | 2022-11-25 08:24 | P.PNIM_ITS ---
Progress Note: A&P Assessment and Plan (1) Pneumonia: Code(s): J18.9 - Pneumonia, unspecified organism Status: Acute Assessment and Plan: 1. pneumonia * MRSA - negative, vanc d/c'd * CXR: worsening left lower lobe airspace consolidation, suspicious for pneumonia.? Stable inferior right upper lobe mass, see recent CT for further details * continue cefepime, add azithromycin * sputum culture * blood cultures sent * low suspicion for sepsis - no tachycardia, fever, WBC WNL, patient is non- toxic appearing, and lactic acid WNL * lactic acid: 1.1 (2) Hypoxia: Code(s): R09.02 - Hypoxemia Status: Acute Assessment and Plan: 2. hypoxia * EKG sinus rhythm with frequent PACs. LOW QRS VOLTAGE IN PRECORDIAL LEADS? [QRS DEFLECTION <1.0 mV IN CHEST LEADS] ANTEROSEPTAL MYOCARDIAL INFARCTION, OF INDETERMINATE AGE [40+ ms Q WAVE IN V1-V4] COMPARED TO ECG 11/20/2022 17:59:16 HR decreased * BNP elevated compared to prior, 964 v 465 * Recent Echo - 11/21/22 1. Left ventricular chamber dimension is normal. ?? 2. Left ventricular systolic function is normal, estimated at >70%. ?? 3. The left ventricular diastolic function is grade I diastolic dysfunction. ?? 4. Right ventricular chamber dimension is moderately enlarged. ?? 5. Right ventricular systolic function is normal. ?? 6. Right atrial chamber dimension is moderately enlarged. ?? 7. There is mild mitral valve regurgitation. ?? 8. There is moderate tricuspid valve regurgitation. ?? 9. There is trivial pericardial effusion. * new O2 requirement - 2L, none at baseline * scheduled nebs - albuterol/Atrovent Q4H, once improved reduce to Q6H (3) Mass of upper lobe of right lung: Code(s): R91.8 - Other nonspecific abnormal finding of lung field Status: Acute Assessment and Plan: 3.? mass of upper lobe of right lung * ?confirmed that patient does not wish to pursue biopsy or treatment if cancer * ?care coordination consult for palliative care/hospice care (4) Constipation: Code(s): K59.00 - Constipation, unspecified Status: Acute Assessment and Plan: 4. constipation * last BM 5 days ago * initiate Miralax daily * Fleet enema x1, reevaluate post-admin. * BM after enema (5) Type 2 diabetes mellitus: Qualifiers: Diabetes mellitus complication status: with hyperglycemia Diabetes mellitus custodial insulin use: without custodial use Qualified Code(s): E11.65 - Type 2 diabetes mellitus with hyperglycemia Code(s): E11.9 - Type 2 diabetes mellitus without complications Status: Acute Assessment and Plan: 5. Diabetes, Type 2 * hypoglycemia protocol * POC blood glucose ACHS * correct regimen ordered - low dose TIDWM and HS * A1C ordered * home metformin continued Plan Diet: heart healthy GI Prophylaxis: not currently indicated DVT Prophylaxis: SCDs, enoxaparin 40 Lines: pIV Disposition: Code Status: DNR, confirmed with patient on 11/24 Subjective Date/time seen: 11/25/22 08:24 Interval history: HPI obtained from chart, This is an 86-year-old male presents here with increasing shortness of breath with past medical history of COPD, PVD, and diabetes. Patient reports that he has been having increased shortness of breath over the last week that is constant.? patient has history of COPD and currently uses nebulizers at home, however has not been using his inhalers because he gave up on inhalers ? due to feeling like t
--- NOTE | 2022-11-25 08:24 | PM.IMPN ---
Progress Note: A&P Assessment and Plan (1) Pneumonia: Code(s): J18.9 - Pneumonia, unspecified organism Status: Acute Assessment and Plan: 1. pneumonia MRSA - negative, vanc d/c'd CXR: worsening left lower lobe airspace consolidation, suspicious for pneumonia.? Stable inferior right upper lobe mass, see recent CT for further details continue cefepime, add azithromycin sputum culture blood cultures sent low suspicion for sepsis - no tachycardia, fever, WBC WNL, patient is non-toxic appearing, and lactic acid WNL lactic acid: 1.1 (2) Hypoxia: Code(s): R09.02 - Hypoxemia Status: Acute Assessment and Plan: 2. hypoxia EKG sinus rhythm with frequent PACs. LOW QRS VOLTAGE IN PRECORDIAL LEADS? [QRS DEFLECTION <1.0 mV IN CHEST LEADS] ANTEROSEPTAL MYOCARDIAL INFARCTION, OF INDETERMINATE AGE [40+ ms Q WAVE IN V1-V4] COMPARED TO ECG 11/20/2022 17:59:16 HR decreased BNP elevated compared to prior, 964 v 465 Recent Echo - 11/21/22 1. Left ventricular chamber dimension is normal. ?? 2. Left ventricular systolic function is normal, estimated at >70%. ?? 3. The left ventricular diastolic function is grade I diastolic dysfunction. ?? 4. Right ventricular chamber dimension is moderately enlarged. ?? 5. Right ventricular systolic function is normal. ?? 6. Right atrial chamber dimension is moderately enlarged. ?? 7. There is mild mitral valve regurgitation. ?? 8. There is moderate tricuspid valve regurgitation. ?? 9. There is trivial pericardial effusion. new O2 requirement - 2L, none at baseline scheduled nebs - albuterol/Atrovent Q4H, once improved reduce to Q6H (3) Mass of upper lobe of right lung: Code(s): R91.8 - Other nonspecific abnormal finding of lung field Status: Acute Assessment and Plan: 3.? mass of upper lobe of right lung ?confirmed that patient does not wish to pursue biopsy or treatment if cancer ?care coordination consult for palliative care/hospice care (4) Constipation: Code(s): K59.00 - Constipation, unspecified Status: Acute Assessment and Plan: 4. constipation last BM 5 days ago initiate Miralax daily Fleet enema x1, reevaluate post-admin. 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 Diabetes, Type 2 hypoglycemia protocol POC blood glucose ACHS correct regimen ordered - low dose TIDWM and HS A1C ordered home metformin continued Plan Diet: heart healthy GI Prophylaxis: not currently indicated DVT Prophylaxis: SCDs, enoxaparin 40 Lines: pIV Disposition: Code Status: DNR, confirmed with patient on 11/24 Subjective Date/time seen: 11/25/22 08:24 Interval history: HPI obtained from chart, This is an 86-year-old male presents here with increasing shortness of breath with past medical history of COPD, PVD, and diabetes. Patient reports that he has been having increased shortness of breath over the last week that is constant.? patient has history of COPD and currently uses nebulizers at home, however has not been using his inhalers because he gave up on inhalers ? due to feeling like they did not work.? ? Has not previously required oxygen at baseline.? Was recently admitted for episode of atrial fibrillation, no previous history.? During this admission he was found to have a mass that was concerning for bronchogenic cancer.? Patient? does not want to pursue biopsy or treatment, confirmed with patient.? Reports recent incidence of panic attacks x2. ? First incidence was after he left AMA from the hospital on 11/21 that evening.? He described the event as if he could
[2022-11-25] MEDS: CYANOCOBALAMIN 1,000 MCG TABLET 1000 MCG PO (08:25)
[2022-11-25] MEDS: ENOXAPARIN 40 MG/0.4 ML SYRINGE SUB-Q (08:25)
[2022-11-25] MEDS: polyethylene glycoL 3350 17 GM POWD.PACK PO (08:25)
[2022-11-25] MEDS: cilostazoL 100 MG TABLET PO ×2 (08:25→16:53)
[2022-11-25] MEDS: metFORMIN HCL XR 500 MG TAB.SR.24H 1000 MG PO (08:25)
[2022-11-25 09:03] LABS: Basophils Absolute Auto 0.1 K/mm3 (0.0-0.1); Basophils Percent Auto 0.7 % (0.2-1.2); Eosinophils Absolute Auto 0.1 K/mm3 (0-0.3); Eosinophils Percent Auto 1.1 % (0-4.4); Hematocrit 37.6 % (42.0-52.0); Hemoglobin 11.8 g/dL (14.0-18.0); Immature Granulocyte Absolute 0.12 K/mm3 (0.00-0.031); Immature Granulocyte Percent A 1.7 % (0-0.5); Lymphocytes Absolute Auto 0.73 K/mm3 (0.9-3.2); Lymphocytes Percent Auto 10.4 % (18.3-44.2); Mean Corpuscular HGB Conc 31.4 g/dl (32-36); Mean Corpuscular Volume 92.4 fl (80-100); Monocytes Absolute Auto 0.4 K/mm3 (0.1-0.6); Neutrophils Absolute Auto 5.6 K/mm3 (1.3-6.7); Neutrophils Percent Auto 80.1 % (45.5-73.1); Platelet Count Result 426 k/mm3 (150-375); Red Blood Count 4.07 M/mm3 (4.6-6.20)
[2022-11-25 09:05] LABS: Alanine Aminotransferase 39 U/L (6-50); Albumin Level 3.3 g/dL (3.5-5.1); Alkaline Phosphatase 88 U/L (38-126); Anion Gap 4 mmol/L (8-16); Aspartate Amino Transferase 34 U/L (17-59); Bilirubin,Total 0.7 mg/dL (0.2-1.3); Blood Urea Nitrogen 9 mg/dL (9-20); Calcium 8.3 mg/dL (8.4-10.2); Carbon Dioxide 34 mmol/L (22-30); Chloride 97 mmol/L (98-107); Estimated CRCL calculation 73 ml/min; Estimated Glomerular Filt Rate > 60; Glucose 167 mg/dL (65-110); Potassium 3.6 mmol/L (3.4-5.0); Sodium 135 mmol/L (137-145)
[2022-11-25 11:36] LABS: Glucose Point of Care 190 mg/dl (65-105)
[2022-11-25 16:33] LABS: Glucose Point of Care 293 mg/dl (65-105)
[2022-11-25] MEDS: INSULIN ASPART (*BKC) 100 UNITS/ML SUB-Q (16:45)
[2022-11-25 20:40] LABS: Glucose Point of Care 242 mg/dl (65-105)
[2022-11-26] VITALS (14 sets, daily range): BP systolic 125; BP diastolic 84; PULSE 60–101; RESP 18–20; TEMP 37.1; O2SAT 87–92
[2022-11-26] MEDS: AZITHROMYCIN 500 MG/NS 250 ML 500 MG/250 ML BAG 250 MG IVPB (00:14)
[2022-11-26] MEDS: ALBUTEROL SULFATE NEB 2.5 MG/3 ML INH INHALATION ×3 (05:04→11:38)
[2022-11-26] MEDS: IPRATROPIUM BR 0.02% INH SOLN 0.5 MG/2.5 ML VIAL INHALATION ×3 (05:04→11:38)
[2022-11-26] MEDS: CEFEPIME 2 GM/NS 50 ML 2 GM/50 ML BAG IVPB (05:14)
[2022-11-26 06:09] LABS: Basophils Percent Auto 0.8 % (0.2-1.2); Eosinophils Absolute Auto 0.1 K/mm3 (0-0.3); Eosinophils Percent Auto 1.9 % (0-4.4); Hematocrit 37.4 % (42.0-52.0); Hemoglobin 11.7 g/dL (14.0-18.0); Immature Granulocyte Absolute 0.09 K/mm3 (0.00-0.031); Immature Granulocyte Percent A 1.7 % (0-0.5); Lymphocytes Absolute Auto 0.78 K/mm3 (0.9-3.2); Lymphocytes Percent Auto 14.7 % (18.3-44.2); Mean Corpuscular HGB Conc 31.3 g/dl (32-36); Mean Corpuscular Volume 92.8 fl (80-100); Mean Platelet Volume 8.3 fl (7.4-10.4); Monocytes Absolute Auto 0.5 K/mm3 (0.1-0.6); Monocytes Percent Auto 8.5 % (2.6-8.5); Neutrophils Absolute Auto 3.8 K/mm3 (1.3-6.7); Neutrophils Percent Auto 72.4 % (45.5-73.1); Platelet Count Result 403 k/mm3 (150-375); Red Blood Count 4.03 M/mm3 (4.6-6.20); White Blood Count 5.3 K/mm3 (4.5-10.0)
[2022-11-26 06:28] LABS: Alanine Aminotransferase 36 U/L (6-50); Albumin Level 3.1 g/dL (3.5-5.1); Alkaline Phosphatase 81 U/L (38-126); Anion Gap 3 mmol/L (8-16); Aspartate Amino Transferase 33 U/L (17-59); Bilirubin,Total 0.7 mg/dL (0.2-1.3); Blood Urea Nitrogen 9 mg/dL (9-20); Calcium 8.5 mg/dL (8.4-10.2); Carbon Dioxide 36 mmol/L (22-30); Chloride 97 mmol/L (98-107); Estimated CRCL calculation 57 ml/min; Estimated Glomerular Filt Rate > 60; Glucose 164 mg/dL (65-110); Magnesium 2.2 mg/dL (1.6-2.3); Potassium 3.5 mmol/L (3.4-5.0); Sodium 136 mmol/L (137-145)
--- NOTE | 2022-11-26 07:04 | P.PNIM_ITS ---
Progress Note: A&P Assessment and Plan (1) Pneumonia: Code(s): J18.9 - Pneumonia, unspecified organism Status: Acute Assessment and Plan: 1. pneumonia * MRSA - negative, vanc d/c'd * CXR: worsening left lower lobe airspace consolidation, suspicious for pneumonia.? Stable inferior right upper lobe mass, see recent CT for further details * continue cefepime, add azithromycin * sputum culture * blood cultures sent * low suspicion for sepsis - no tachycardia, fever, WBC WNL, patient is non- toxic appearing, and lactic acid WNL * lactic acid: 1.1 (2) Hypoxia: Code(s): R09.02 - Hypoxemia Status: Acute Assessment and Plan: 2. hypoxia * EKG sinus rhythm with frequent PACs. LOW QRS VOLTAGE IN PRECORDIAL LEADS? [QRS DEFLECTION <1.0 mV IN CHEST LEADS] ANTEROSEPTAL MYOCARDIAL INFARCTION, OF INDETERMINATE AGE [40+ ms Q WAVE IN V1-V4] COMPARED TO ECG 11/20/2022 17:59:16 HR decreased * BNP elevated compared to prior, 964 v 465 * Recent Echo - 11/21/22 1. Left ventricular chamber dimension is normal. ?? 2. Left ventricular systolic function is normal, estimated at >70%. ?? 3. The left ventricular diastolic function is grade I diastolic dysfunction. ?? 4. Right ventricular chamber dimension is moderately enlarged. ?? 5. Right ventricular systolic function is normal. ?? 6. Right atrial chamber dimension is moderately enlarged. ?? 7. There is mild mitral valve regurgitation. ?? 8. There is moderate tricuspid valve regurgitation. ?? 9. There is trivial pericardial effusion. * new O2 requirement - 2L, none at baseline * scheduled nebs - albuterol/Atrovent Q4H, once improved reduce to Q6H * walking o2 study prior to d/c (3) Mass of upper lobe of right lung: Code(s): R91.8 - Other nonspecific abnormal finding of lung field Status: Acute Assessment and Plan: 3.? mass of upper lobe of right lung * ?confirmed that patient does not wish to pursue biopsy or treatment if cancer * ?care coordination consult for palliative care/hospice care (4) Constipation: Code(s): K59.00 - Constipation, unspecified Status: Acute Assessment and Plan: 4. constipation * last BM 5 days ago * initiate Miralax daily * Fleet enema x1, reevaluate post-admin. 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 Diabetes, Type 2 * hypoglycemia protocol * POC blood glucose ACHS * correct regimen ordered - low dose TIDWM and HS * A1C ordered 7.6% * home metformin continued Plan Diet: heart healthy GI Prophylaxis: not currently indicated DVT Prophylaxis: SCDs, enoxaparin 40 Lines: pIV Disposition: Code Status: DNR, confirmed with patient on 11/24 Subjective Date/time seen: 11/26/22 07:04 Interval history: HPI obtained from chart, This is an 86-year-old male presents here with increasing shortness of breath with past medical history of COPD, PVD, and diabetes. Patient reports that he has been having increased shortness of breath over the last week that is constant.? patient has history of COPD and currently uses nebulizers at home, however has not been using his inhalers because he gave
--- NOTE | 2022-11-26 07:04 | PM.IMPN ---
Progress Note: A&P Assessment and Plan (1) Pneumonia: Code(s): J18.9 - Pneumonia, unspecified organism Status: Acute Assessment and Plan: 1. pneumonia MRSA - negative, vanc d/c'd CXR: worsening left lower lobe airspace consolidation, suspicious for pneumonia.? Stable inferior right upper lobe mass, see recent CT for further details continue cefepime, add azithromycin sputum culture blood cultures sent low suspicion for sepsis - no tachycardia, fever, WBC WNL, patient is non-toxic appearing, and lactic acid WNL lactic acid: 1.1 (2) Hypoxia: Code(s): R09.02 - Hypoxemia Status: Acute Assessment and Plan: 2. hypoxia EKG sinus rhythm with frequent PACs. LOW QRS VOLTAGE IN PRECORDIAL LEADS? [QRS DEFLECTION <1.0 mV IN CHEST LEADS] ANTEROSEPTAL MYOCARDIAL INFARCTION, OF INDETERMINATE AGE [40+ ms Q WAVE IN V1-V4] COMPARED TO ECG 11/20/2022 17:59:16 HR decreased BNP elevated compared to prior, 964 v 465 Recent Echo - 11/21/22 1. Left ventricular chamber dimension is normal. ?? 2. Left ventricular systolic function is normal, estimated at >70%. ?? 3. The left ventricular diastolic function is grade I diastolic dysfunction. ?? 4. Right ventricular chamber dimension is moderately enlarged. ?? 5. Right ventricular systolic function is normal. ?? 6. Right atrial chamber dimension is moderately enlarged. ?? 7. There is mild mitral valve regurgitation. ?? 8. There is moderate tricuspid valve regurgitation. ?? 9. There is trivial pericardial effusion. new O2 requirement - 2L, none at baseline scheduled nebs - albuterol/Atrovent Q4H, once improved reduce to Q6H walking o2 study prior to d/c (3) Mass of upper lobe of right lung: Code(s): R91.8 - Other nonspecific abnormal finding of lung field Status: Acute Assessment and Plan: 3.? mass of upper lobe of right lung ?confirmed that patient does not wish to pursue biopsy or treatment if cancer ?care coordination consult for palliative care/hospice care (4) Constipation: Code(s): K59.00 - Constipation, unspecified Status: Acute Assessment and Plan: 4. constipation last BM 5 days ago initiate Miralax daily Fleet enema x1, reevaluate post-admin. 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 Diabetes, Type 2 hypoglycemia protocol POC blood glucose ACHS correct regimen ordered - low dose TIDWM and HS A1C ordered 7.6% home metformin continued Plan Diet: heart healthy GI Prophylaxis: not currently indicated DVT Prophylaxis: SCDs, enoxaparin 40 Lines: pIV Disposition: Code Status: DNR, confirmed with patient on 11/24 Subjective Date/time seen: 11/26/22 07:04 Interval history: HPI obtained from chart, This is an 86-year-old male presents here with increasing shortness of breath with past medical history of COPD, PVD, and diabetes. Patient reports that he has been having increased shortness of breath over the last week that is constant.? patient has history of COPD and currently uses nebulizers at home, however has not been using his inhalers because he gave up on inhalers ? due to feeling like they did not work.? ? Has not previously required oxygen at baseline.? Was recently admitted for episode of atrial fibrillation, no previous history.? During this admission he was found to have a mass that was concerning for bronchogenic cancer.? Patient? does not want to pursue biopsy or treatment, confirmed with patient.? Reports recent incidence of panic attacks x2. ? First incidence was after he left AMA from the hospital on 11/21 that evening.? H
[2022-11-26 07:46] LABS: Glucose Point of Care 167 mg/dl (65-105)
[2022-11-26 08:27] LABS: Hemoglobin A1C 7.5 % (<5.7)
--- NOTE | 2022-11-26 08:31 | HOMEO2EVAL ---
Evaluation was performed at [facility] Home Oxygen Evaluation RC: Home Oxygen (O2) Evaluation Start: 11/26/22 07:07 Freq: ONCE Status: Active Protocol: RPE Activity Type Activity Date Activity User E-sign Co-sign Detail Recorded Client Recorded Date Recorded By Document 11/26/22 08:08 CLC [email or web address] 11/26/22 08:31 CLC Document 11/26/22 08:10 CLC [email or web address] 11/26/22 08:31 CLC Document 11/26/22 08:14 CLC [email or web address] 11/26/22 08:31 CLC Document 11/26/22 08:18 CLC [email or web address] 11/26/22 08:31 CLC 11/26/22 11/26/22 11/26/22 08:08 08:10 08:14 Home O2 Evaluation [Oxygen] -Test Phase Resting Resting Exercise -Oxygen Delivery Room Air Nasal Cannula Nasal Cannula -Oxygen Flow Rate (L/min) 2 2 [Pulse Oximetry] -Pulse Oximetry (90-100 %) 87 L 92 91 [Pulse Rate] -Pulse Rate (60-100 beats/min) 87 82 81 [Evaluation] -Activity Tolerance Good [Exercise] -Ambulation Distance (feet) 200 -Ambulation Distance (meters) 60.95 [Charges] -Treatment Charges O2 Evaluation - Inpatient 11/26/22 08:18 Home O2 Evaluation [Oxygen] -Test Phase Resting -Oxygen Delivery Nasal Cannula -Oxygen Flow Rate (L/min) [Pulse Oximetry] -Pulse Oximetry (90-100 %) 92 [Pulse Rate] -Pulse Rate (60-100 beats/min) 82 [Evaluation] -Activity Tolerance [Exercise] -Ambulation Distance (feet) -Ambulation Distance (meters) [Charges] -Treatment Charges
--- NOTE | 2022-11-26 08:31 | PCRCNOTE ---
Patient requires 2 liters per minute of oxygen continuously.
[2022-11-26] MEDS: AMOXICILLIN/CLAVULANATE K 875-125 MG TAB 1 TABLET PO (09:16)
[2022-11-26] MEDS: ENOXAPARIN 40 MG/0.4 ML SYRINGE SUB-Q (09:16)
[2022-11-26] MEDS: metFORMIN HCL XR 500 MG TAB.SR.24H 1000 MG PO (09:16)
[2022-11-26] MEDS: cilostazoL 100 MG TABLET PO (09:17)
[2022-11-26] MEDS: AZITHROMYCIN 250 MG TABLET 500 MG PO (09:17)
[2022-11-26] MEDS: CYANOCOBALAMIN 1,000 MCG TABLET 1000 MCG PO (09:17)
--- NOTE | 2022-11-26 10:29 | P.DS_ITS ---
DS: Admitting Diagnosis Discharge Date 11/26 Admitting Diagnosis shortness of breath DS: Discharge Diagnosis Discharge Diagnosis (1) Pneumonia: Code(s): J18.9 - Pneumonia, unspecified organism Status: Acute (2) Hypoxia: Code(s): R09.02 - Hypoxemia Status: Acute (3) Mass of upper lobe of right lung: Code(s): R91.8 - Other nonspecific abnormal finding of lung field Status: Acute (4) Constipation: Code(s): K59.00 - Constipation, unspecified Status: Acute (5) Type 2 diabetes mellitus: Qualifiers: Diabetes mellitus railcar mechanic insulin use: without railcar mechanic use Diabetes mellitus complication status: with hyperglycemia Qualified Code(s): E11.65 - Type 2 diabetes mellitus with hyperglycemia Code(s): E11.9 - Type 2 diabetes mellitus without complications Status: Acute Plan Assessment and Plan (1) Pneumonia: ?Code(s): J18.9 - Pneumonia, unspecified organism ?Status:?Acute ?Assessment and Plan: 1. pneumonia * MRSA - negative, vanc d/c'd * CXR: worsening left lower lobe airspace consolidation, suspicious for pneumonia.? Stable inferior right upper lobe mass, see recent CT for further details * continue cefepime, add azithromycin * sputum culture * blood cultures sent * low suspicion for sepsis - no tachycardia, fever, WBC WNL, patient is non- toxic appearing, and lactic acid WNL * lactic acid: 1.1 (2) Hypoxia: ?Code(s): R09.02 - Hypoxemia ?Status:?Acute ?Assessment and Plan: 2. hypoxia * EKG sinus rhythm with frequent PACs. LOW QRS VOLTAGE IN PRECORDIAL LEADS? [QRS DEFLECTION <1.0 mV IN CHEST LEADS] ANTEROSEPTAL MYOCARDIAL INFARCTION, OF INDETERMINATE AGE [40+ ms Q WAVE IN V1-V4] COMPARED TO ECG 11/20/2022 17:59:16 HR decreased * BNP elevated compared to prior, 964 v 465 * Recent Echo - 11/21/22 1. Left ventricular chamber dimension is normal. ?? 2. Left ventricular systolic function is normal, estimated at >70%. ?? 3. The left ventricular diastolic function is grade I diastolic dysfunction. ?? 4. Right ventricular chamber dimension is moderately enlarged. ?? 5. Right ventricular systolic function is normal. ?? 6. Right atrial chamber dimension is moderately enlarged. ?? 7. There is mild mitral valve regurgitation. ?? 8. There is moderate tricuspid valve regurgitation. ?? 9. There is trivial pericardial effusion. * new O2 requirement - 2L, none at baseline * scheduled nebs - albuterol/Atrovent Q4H, once improved reduce to Q6H(3) Mass of upper lobe of right lung: ?Code(s): R91.8 - Other nonspecific abnormal finding of lung field ?Status:?Acute ?Assessment and Plan: 3.? mass of upper lobe of right lung * ?confirmed that patient does not wish to pursue biopsy or treatment if cancer * ?care coordination consult for palliative care/hospice care(4) Constipation: ?Code(s): K59.00 - Constipation, unspecified ?Status:?Acute ?Assessment and Plan: 4. constipation * last BM 5 days ago * initiate Miralax daily * Fleet enema x1, reevaluate post-admin. * BM after enema(5) Type 2 diabetes mellitus: ?Qualifiers: ?Diabetes mellitus complication status:?with hyperglycemia??Diabetes mellitus custodial insulin use:?without railcar mechanic use? Qualified Code(s):?E11.65 - Type 2 diabetes mellitus with hyperglycemia ?Code(s): E11.9 - Type 2 diabetes mellitus without complications ?Status:?Acute ?Assessment and Plan: 5. Diabetes, Type 2 * h
--- NOTE | 2022-11-26 10:29 | PM.DS ---
DS: Admitting Diagnosis Discharge Date 11/26 Admitting Diagnosis shortness of breath DS: Discharge Diagnosis Discharge Diagnosis (1) Pneumonia: Code(s): J18.9 - Pneumonia, unspecified organism Status: Acute (2) Hypoxia: Code(s): R09.02 - Hypoxemia Status: Acute (3) Mass of upper lobe of right lung: Code(s): R91.8 - Other nonspecific abnormal finding of lung field Status: Acute (4) Constipation: Code(s): K59.00 - Constipation, unspecified Status: Acute (5) Type 2 diabetes mellitus: Qualifiers: Diabetes mellitus termite treater helper insulin use: without termite treater helper use Diabetes mellitus complication status: with hyperglycemia Qualified Code(s): E11.65 - Type 2 diabetes mellitus with hyperglycemia Code(s): E11.9 - Type 2 diabetes mellitus without complications Status: Acute Plan Assessment and Plan (1) Pneumonia: ?Code(s): J18.9 - Pneumonia, unspecified organism ?Status:?Acute ?Assessment and Plan: 1. pneumonia MRSA - negative, vanc d/c'd CXR: worsening left lower lobe airspace consolidation, suspicious for pneumonia.? Stable inferior right upper lobe mass, see recent CT for further details continue cefepime, add azithromycin sputum culture blood cultures sent low suspicion for sepsis - no tachycardia, fever, WBC WNL, patient is non-toxic appearing, and lactic acid WNL lactic acid: 1.1 (2) Hypoxia: ?Code(s): R09.02 - Hypoxemia ?Status:?Acute ?Assessment and Plan: 2. hypoxia EKG sinus rhythm with frequent PACs. LOW QRS VOLTAGE IN PRECORDIAL LEADS? [QRS DEFLECTION <1.0 mV IN CHEST LEADS] ANTEROSEPTAL MYOCARDIAL INFARCTION, OF INDETERMINATE AGE [40+ ms Q WAVE IN V1-V4] COMPARED TO ECG 11/20/2022 17:59:16 HR decreased BNP elevated compared to prior, 964 v 465 Recent Echo - 11/21/22 1. Left ventricular chamber dimension is normal. ?? 2. Left ventricular systolic function is normal, estimated at >70%. ?? 3. The left ventricular diastolic function is grade I diastolic dysfunction. ?? 4. Right ventricular chamber dimension is moderately enlarged. ?? 5. Right ventricular systolic function is normal. ?? 6. Right atrial chamber dimension is moderately enlarged. ?? 7. There is mild mitral valve regurgitation. ?? 8. There is moderate tricuspid valve regurgitation. ?? 9. There is trivial pericardial effusion. new O2 requirement - 2L, none at baseline scheduled nebs - albuterol/Atrovent Q4H, once improved reduce to Q6H(3) Mass of upper lobe of right lung: ?Code(s): R91.8 - Other nonspecific abnormal finding of lung field ?Status:?Acute ?Assessment and Plan: 3.? mass of upper lobe of right lung ?confirmed that patient does not wish to pursue biopsy or treatment if cancer ?care coordination consult for palliative care/hospice care(4) Constipation: ?Code(s): K59.00 - Constipation, unspecified ?Status:?Acute ?Assessment and Plan: 4. constipation last BM 5 days ago initiate Miralax daily Fleet enema x1, reevaluate post-admin. BM after enema(5) Type 2 diabetes mellitus: ?Qualifiers: ?Diabetes mellitus complication status:?with hyperglycemia??Diabetes mellitus termite treater helper insulin use:?without termite treater helper use? Qualified Code(s):?E11.65 - Type 2 diabetes mellitus with hyperglycemia ?Code(s): E11.9 - Type 2 diabetes mellitus without complications ?Status:?Acute ?Assessment and Plan: 5. Diabetes, Type 2 hypoglycemia protocol POC blood glucose ACHS correct regimen ordered - low dose TIDWM and HS A1C ordered home metformin continued Plan Diet: heart healthy GI Prophylaxis:? not currently indicated DVT Prophylaxis:? SCDs, enoxaparin 40 Lines: pIV Disposition: Code Status: DNR, confirmed with patient on 11/24 DS: Summary Hospital Course Hospital Course: This is an 86-year-old male presents here with increasing shortness of breath with past medical history
[2022-11-26 11:40] LABS: Glucose Point of Care 193 mg/dl (65-105)
== END 2022-11-26 13:06 | disposition home or self-care (01) | DRG 194 ==
LOC: ANHED 09:24 → ANH3MEDSUR 10:41
PROVIDERS: Emergency Medicine; Student in an Organized Health Care Education/Training Program; Admitting Provider Internal Medicine; Emergency Provider Emergency Medicine; PCP Family Medicine Sports Medicine; Visit Provider Nurse Practitioner Acute Care
DX: J18.9 Pneumonia, unspecified organism (principal); J44.0 Chronic obstructive pulmonary disease with (acute) lower respiratory infection; R09.02 Hypoxemia; R91.8 Other nonspecific abnormal finding of lung field; K59.00 Constipation, unspecified; E11.65 Type 2 diabetes mellitus with hyperglycemia; I73.9 Peripheral vascular disease, unspecified; N40.0 Benign prostatic hyperplasia without lower urinary tract symptoms; Z20.822 Contact with and (suspected) exposure to COVID-19; E66.9 Obesity, unspecified; Z68.31 Body mass index [BMI] 31.0-31.9, adult; Z98.42 Cataract extraction status, left eye; Z98.41 Cataract extraction status, right eye; Z96.1 Presence of intraocular lens; Z87.891 Personal history of nicotine dependence; Z66 Do not resuscitate
CPT/HCPCS: 36415; 71045; 80053; 82948; 83036; 83605; 83735; 83880; 85025; 87040; 87637; 87641; 93005; 94618; 94640; 94667; 96365; 99285; A9270; J0456; J0692; J1650; J1815; J3370

== ENCOUNTER 2023-11-12 02:25 | Emergency (ER) | payer MEDICARE, OTHER, SELFPAY ==
[2023-11-12 02:34] VITALS: BP 176/100; PULSE 81; RESP 18; TEMP 36.8; O2SAT 96
--- NOTE | 2023-11-12 03:17 | PC.NURSE ---
Report received from FLORENCIO Phillips. Assumed care of patient at this time.
--- NOTE | 2023-11-12 04:11 | PC.NURSE ---
Patient on BSC attempting to have a BM after enema, patient tolerating well. Patient was able to hold 400-500ml of enema.
--- NOTE | 2023-11-12 04:27 | ED.GENADULT ---
HPI - General Adult General Chief complaint: Abdominal Pain Stated complaint: I feel like im going to explode , abd Time Seen by Provider: 11/12/23 02:43 History of Present Illness HPI narrative: Patient is a 87-year-old gentleman who presents emergency department with chief complaint of inability to have a bowel movement the patient states it feels like it is stuck or about to explode patient states that he has not had a bowel movement since Sunday and feels as though he needs an enema. Related Data Home Medications Medication Instructions Recorded Confirmed Cough Syrup BYMOUTH 08/14/23 aspirin 81 mg tablet,delayed 81 mg PO DAILY 08/14/23 release (Adult Low Dose Aspirin) ibuprofen 200 mg tablet 200 mg PO Q6H PRN 08/14/23 Allergies Allergy/AdvReac Type Severity Reaction Status Date / Time oseltamivir Allergy Unknown Unknown Verified 08/14/23 13:40 Tamaflu Allergy Unknown Unknown Uncoded 08/14/23 13:40 Review of Systems Review of Systems: A 10 system review of systems was completed on the patient and is negative except for what is stated in the HPI. Nursing and ancillary documentation was reviewed. [facility] Past Medical History Medical History Atrial fibrillation with rapid ventricular response BPH (benign prostatic hyperplasia) Constipation COPD (chronic obstructive pulmonary disease) Obesity Peripheral vascular disease Pneumonia Pneumonia Snoring Type 2 diabetes mellitus Surgical History Surgical History Status post cataract extraction of both eyes with insertion of intraocular lens Family History Family History Mother Myocardial infarction Kidney disorder Father Grandparent Asthma Other No significant family history Social History Social History Social History: Patient lives at home with his of 55 years. They have 2 children. 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 He smoked at least 2 packs cigarettes per day from a preteen until 1995. He is independent ambulation and activities of daily living. Code status: DNR/DNI (per patient request) Surrogate decision maker: Smoking packs per day: 2 Smoking cigarettes per day: 40.0 Years smoked: 44 Smoking pack-years: 88.00 Smoking status: Never smoker Tobacco type: cigarettes Second hand tobacco smoke exposure: No Smoking end date: 11/21/94 Alcohol intake: never Alcohol use details: He quit drinking alcohol over 30 years ago. He denies any history of excessive alcohol use. Substance use: never Lack of Transportation: No Lack of Food: Never True Current Housing: I Have Housing Concerned About Future Housing: No Difficulty Paying Gas/Electric Bills: No Difficulty Paying for Meds: No Currently Unemployed: No Education: High School Diploma/GED Difficulty w/ Childcare or Family Care: No Spiritual care concerns: No Exam Narrative: GENERAL: Well-appearing, well-nourished, and in no acute distress. HEAD: Normocephalic, atraumatic. EYES: PERRLA and EOMI. ENT: Nares clear, no rhinorrhea or epistaxis. Mucous membranes moist. NECK: Supple. CHEST: Clear to auscultation. No respiratory distress. HEART: Regular rate and rhythm. No murmur heard. Normal peripheral pulses. ABDOMEN: Soft, nontender, nondistended, normal active bowel sounds. EXTREMITIES: Normal range of motion. No edema. SKIN: Warm, dry, no rash. NEURO: No focal deficits. Alert and oriented x3. PSYCH: Normal mood and affect. Course Vital Signs Vital signs: Vital Signs Temperature 36.8 C 11/12/23 02:34 Pulse Rate 81 11/12/23 02:34 Respiratory Rate 18 11/12/23 02:34 Blood Pressure 176/100 H 11/12/23 02:34 Pulse Oxi
--- NOTE | 2023-11-12 04:32 | PC.NURSE ---
Patient had large BM after enema. Patient states he feels much better and is ready to go home. ERP notified.
== END 2023-11-12 04:50 | disposition home or self-care (01) ==
PROVIDERS: Emergency Provider Emergency Medicine; PCP Nurse Practitioner Adult Health
DX: K56.41 Fecal impaction (principal); I48.91 Unspecified atrial fibrillation; N40.0 Benign prostatic hyperplasia without lower urinary tract symptoms; J44.9 Chronic obstructive pulmonary disease, unspecified; E11.51 Type 2 diabetes mellitus with diabetic peripheral angiopathy without gangrene; I73.9 Peripheral vascular disease, unspecified; E66.9 Obesity, unspecified; Z68.30 Body mass index [BMI] 30.0-30.9, adult; Z87.01 Personal history of pneumonia (recurrent); Z87.891 Personal history of nicotine dependence; Z96.1 Presence of intraocular lens; Z98.42 Cataract extraction status, left eye; Z98.41 Cataract extraction status, right eye; Z79.82 Long term (current) use of aspirin; Z79.84 Long term (current) use of oral hypoglycemic drugs
CPT/HCPCS: 99282